=== PATIENT | female | born 1985 | race Two or more races ===

== ENCOUNTER 2016-10-13 15:13 | Emergency (ER) | payer MEDICAID, OTHER ==
[~2016-10-13] VITALS: Ht 165.1 cm; Wt 75.3 kg
[2016-10-13 16:30] LABS: Albumin 3.4 g/dL (3.4-5.0); Calcium 8.6 mg/dL (8.5-10.1); Magnesium 2.1 mg/dL (1.6-2.6)
[2016-10-13 17:07] LABS: Urine Bilirubin Negative (Negative); Urine Blood Negative /uL (Negative); Urine Color Yellow (Yellow); Urine Glucose Normal (Normal); Urine Ketone Negative (Negative); Urine Nitrite Negative (Negative); Urine RBC 1 /hpf (0 - 4); Urine Squamous Epithelial Cell FEW /hpf (<5); Urine pH 7.5 (5.0-8.0)
[2016-10-13 17:07] LABS: Bilirubin, Total 0.6 mg/dL (0.2-1.0); Total Protein 7.1 g/dL (6.4-8.2)
[2016-10-13 17:55] LABS: Basophils # (auto) 0 uL; Basophils % (auto) 0.7 % (0.0-2.0); DEFINITIVE VIEW TRANSMISSION; Eosinophils # (auto) 0.1 uL; Eosinophils % (auto) 1.1 % (0.0-7.0); Hematocrit 33.2 % (36.0-46.0); Hemoglobin 10.1 g/dL (12.2-16.2); Lymphocytes # (auto) 1.3 uL; Lymphocytes % (auto) 24.5 % (10.0-50.0); Mean Corpuscular Hemoglobin 22.3 pg (28.0-32.0); Mean Corpuscular Hgb Conc. 30.4 g/dL (32.0-36.0); Mean Corpuscular Volume 73.5 fL (80.0-100.0); Mean Platelet Volume 10.4 fL (7.4-10.4); Monocytes # (auto) 0.3 uL; Monocytes % (auto) 4.6 % (0.0-12.0); Neutrophils # (auto) 3.8 uL; Neutrophils % (auto) 69.1 % (37.0-80.0); Platelet Count (auto) 323 10^3/uL (140-450); Red Cell Distribution Width 18.4 % (11.6-16.0); SUSPECT VIEW TRANSMISSION; White Blood Cell 5.5 10^3/uL (4.4-10.8)
[2016-10-13] MEDS ORDERED: IOHEXOL 350 MG/ML 100ML IJ ONE (21:58)
[2016-10-13 22:50] LABS: INR 1.06 (0.9-1.15); Partial Thromboplastin Time 26.8 sec (22.64-33.71); Prothrombin Time 10.9 sec (9.37-12.3)
[2016-10-13 23:22] LABS: Platelet Estimate Adequate
[2016-10-13 23:23] LABS: Giant Platelets Few; Hypochromia Moderate
[2016-10-14] MEDS ORDERED: ENOXAPARIN SOD 80 MG/0.8ML SYRINGE SC ONE (04:00)
[2016-10-14 04:06] VITALS: BP 138/90
== END 2016-10-14 04:08 | disposition home or self-care (01) ==
LOC: ER 15:20
DX: O88.83 Other embolism in the puerperium (principal); R07.9 Chest pain, unspecified; O24.93 Unspecified diabetes mellitus in the puerperium; O16.5 Unspecified maternal hypertension, complicating the puerperium
CPT/HCPCS: 36415; 71275; 80053; 81001; 83735; 84484; 85025; 85379; 85610; 85730; 93005; 96372; 99285; J1650; Q9967